=== PATIENT | male | born 1935 | race Caucasian/White ===

== ENCOUNTER 2018-03-31 06:38 | Day surgery (SDC) | payer MEDICARE, BC, MEDICAID ==
[~2018-03-31 06:38] MED LIST: Acetaminophen 325 MG Tab PO PRN; Ondansetron 4 MG/2 ML SDV IVPUSH PRN; Phenylephrine 10% Ophth Soln 5 ML Bot EYELF PRN
[2018-03-31] MEDS ORDERED: Midazolam 1 MG/ML 2 ML SDV IV ONE (06:39)
[2018-03-31] MEDS ORDERED: Sodium Chloride 0.9% 10 ML Syringe IV ONE (06:39)
[2018-03-31] MEDS ORDERED: Dexamethasone 4 MG/ML SDV IV ONE (06:39)
[2018-03-31] MEDS: Proparacaine 0.5% Ophth Soln 15 ML Bottle EYELF ONE (07:07)
[2018-03-31] MEDS: Moxifloxacin 0.5% Ophth Soln 3 ML Bottle EYELF ONE (07:09)
[2018-03-31] MEDS: Povidone-Iodine 5% Sterile Ophth Soln 30 ML Bottle EYELF ONE ×2 (07:09→08:03)
[2018-03-31] MEDS: Sodium Chloride 0.9% 10 ML Syringe FLUSH PRN (07:10)
[2018-03-31] MEDS: Phenylephrine 10% Ophth Soln 5 ML Bot EYELF ONE (07:11)
[2018-03-31] MEDS: Timolol Maleate 0.5% Ophth Soln 5 ML Bottle EYELF ONE (07:12)
[2018-03-31] MEDS: Cataract Ophth Solution EYELF ONE (07:14)
[2018-03-31] MEDS: Tetracaine HCl/PF 0.5% 4 ML Bottle EYELF ONE (08:03)
[2018-03-31] MEDS: Lidocaine 1% 30 ML SDV ONE (08:03)
[2018-03-31] MEDS: Diclofenac Sodium 0.1% Ophth Soln 5 ML Bottle EYELF ONE (08:04)
[2018-03-31] MEDS: Apraclonidine 0.5% Ophth Soln 5 ML Bot EYELF ONE (08:04)
[2018-03-31] MEDS: Dexamethasone/Neomycin/Polymyxin B Ophth Oint 3.5 GM Tube EYELF ONE (08:04)
[2018-03-31] MEDS: Chondroitin Sulfate/Hyaluronate Sodium Ophth Inj 0.75 ML Syringe EYELF ONE (08:05)
[2018-03-31] MEDS: Balanced Salt Solution Ophth Irrig 500 ML Bottle IOCULAR ONE (08:05)
[2018-03-31] MEDS: Vancomycin 500 MG SDV EYELF ONE (08:05)
--- NOTE | 2018-03-31 08:25 | OR ---
DATE: 03/31/2018 PREOPERATIVE DIAGNOSIS: Visually significant mixed cataract, left eye. POSTOPERATIVE DIAGNOSIS: Visually significant mixed cataract, left eye. PROCEDURE: Extracapsular cataract extraction with intraocular lens implant, left eye. ANESTHESIA: Topical/local MAC. COMPLICATIONS: None. INDICATION: Mr. Trevino was seen in the clinic with complaints of a slow progressive decrease in vision. His clinical examination reveals visually significant mixed cataract. I explained options, offered cataract surgery, and explained risks preoperatively including the potential for infection, retinal detachment, and loss of vision amongst others. We discussed implant options. He has requested a monofocal implant. OPERATIVE DESCRIPTION: After informed consent was obtained and the risks, benefits, and alternatives were explained, the patient was brought to the operative suite and topical anesthesia was administered. The patient was then prepped and draped in the sterile fashion, and attention was placed on the left eye. A sterile lid speculum was placed into the left eye to allow operative exposure. A full-thickness paracentesis was made in the temporal portion of the operative eye. Preservative-free lidocaine 0.1 mL was injected into the anterior chamber followed by viscoelastic. A full-thickness corneal incision was then made into the anterior chamber. A bent needle cystotome was used to create a small guerda in the anterior capsule. The capsulorrhexis forceps was then used to create a 360-degree curvilinear capsulorrhexis. The nucleus was then removed using a phacoemulsification handpiece, and the remaining cortical material was then removed with irrigation and aspiration handpiece. Following removal of the cortical material, the capsular bag was then inspected and noted to be free of any holes or tears. Viscoelastic was then injected into the capsular bag, and the intraocular lens was inserted into the capsular bag. The viscoelastic material was then removed from both the anterior and posterior chambers and from behind the IOL. The lens and capsular bag were then reinspected. The IOL was well centered and the capsular bag intact. The wound and paracentesis sites were inspected and hydrated with balanced saline solution. Both were found to be self-sealing. The intraocular pressure was assessed digitally and found to be within normal range. A good red reflex was noted at the completion of the procedure. No complications occurred during the operation. At the completion of the procedure, Maxitrol, Voltaren, and Iopidine drops were placed into the operative eye. A sterile eye shield was placed over the operative eye, and the patient was transported to the postoperative recovery area having tolerated the procedure well. Postoperative instructions were given along with a postoperative appointment. The patient was advised to call with any questions or concerns. [facility] /[id number]
== END 2018-03-31 09:23 ==
LOC: DL.SDS 06:38
PROVIDERS: ATTEND Ophthalmology
DX: E11.36 Type 2 diabetes mellitus with diabetic cataract (principal); H25.812 Combined forms of age-related cataract, left eye; H26.9 Unspecified cataract; I13.0 Hypertensive heart and chronic kidney disease with heart failure and stage 1 through stage 4 chronic kidney disease, or unspecified chronic kidney disease; I50.9 Heart failure, unspecified; E11.22 Type 2 diabetes mellitus with diabetic chronic kidney disease; N18.3 Chronic kidney disease, stage 3 (moderate); E78.5 Hyperlipidemia, unspecified; D64.9 Anemia, unspecified; I25.10 Atherosclerotic heart disease of native coronary artery without angina pectoris; I48.91 Unspecified atrial fibrillation
CPT/HCPCS: 00142; A9270-GY; C1780; J1100; J2001; J2250; J3370

== ENCOUNTER 2018-06-23 10:58 | Day surgery (SDC) | payer MEDICARE, BC, MEDICAID ==
[~2018-06-23 10:58] MED LIST changes: +Cataract Ophth Solution EYERT ONE; +Moxifloxacin 0.5% Ophth Soln 3 ML Bottle EYERT ONE; -Phenylephrine 10% Ophth Soln 5 ML Bot EYELF PRN; +Phenylephrine 10% Ophth Soln 5 ML Bot EYERT ONE; +Phenylephrine 10% Ophth Soln 5 ML Bot EYERT PRN; +Povidone-Iodine 5% Sterile Ophth Soln 30 ML Bottle EYERT ONE; +Proparacaine 0.5% Ophth Soln 15 ML Bottle EYERT ONE; +Sodium Chloride 0.9% 10 ML Syringe FLUSH PRN; +Timolol Maleate 0.5% Ophth Soln 5 ML Bottle EYERT ONE
[2018-06-23] MEDS ORDERED: Midazolam 1 MG/ML 2 ML SDV IV ONE (10:59)
[2018-06-23] MEDS ORDERED: Sodium Chloride 0.9% 10 ML Syringe IV ONE (10:59)
[2018-06-23] MEDS ORDERED: Dexamethasone 4 MG/ML SDV IV ONE (10:59)
[2018-06-23] MEDS ORDERED: Phenylephrine 10% Ophth Soln 5 ML Bot EYERT PRN (11:00)
[2018-06-23] MEDS ORDERED: Proparacaine 0.5% Ophth Soln 15 ML Bottle EYERT ONE (11:00)
[2018-06-23] MEDS ORDERED: Povidone-Iodine 5% Sterile Ophth Soln 30 ML Bottle EYERT ONE ×2 (11:00→11:55)
[2018-06-23] MEDS ORDERED: Sodium Chloride 0.9% 10 ML Syringe FLUSH PRN (11:00)
[2018-06-23] MEDS ORDERED: Cataract Ophth Solution EYERT ONE (11:00)
[2018-06-23] MEDS ORDERED: Ondansetron 4 MG/2 ML SDV IVPUSH PRN (11:00)
[2018-06-23] MEDS ORDERED: Moxifloxacin 0.5% Ophth Soln 3 ML Bottle EYERT ONE (11:00)
[2018-06-23] MEDS ORDERED: Phenylephrine 10% Ophth Soln 5 ML Bot EYERT ONE (11:00)
[2018-06-23] MEDS ORDERED: Timolol Maleate 0.5% Ophth Soln 5 ML Bottle EYERT ONE (11:00)
[2018-06-23] MEDS ORDERED: Acetaminophen 325 MG Tab PO PRN (11:00)
[2018-06-23] MEDS ORDERED: Apraclonidine 0.5% Ophth Soln 5 ML Bot EYERT ONE (11:55)
[2018-06-23] MEDS ORDERED: Tetracaine HCl/PF 0.5% 4 ML Bottle EYERT ONE (11:55)
[2018-06-23] MEDS ORDERED: Diclofenac Sodium 0.1% Ophth Soln 5 ML Bottle EYERT ONE (11:55)
[2018-06-23] MEDS ORDERED: Lidocaine 1% 30 ML SDV ONE (11:55)
[2018-06-23] MEDS ORDERED: Dexamethasone/Neomycin/Polymyxin B Ophth Oint 3.5 GM Tube EYERT ONE (11:55)
[2018-06-23] MEDS ORDERED: Balanced Salt Solution Ophth Irrig 500 ML Bottle IOCULAR ONE (11:56)
[2018-06-23] MEDS ORDERED: Vancomycin 500 MG SDV EYERT ONE (11:56)
[2018-06-23] MEDS ORDERED: Chondroitin Sulfate/Hyaluronate Sodium Ophth Inj 0.75 ML Syringe EYERT ONE (11:56)
--- NOTE | 2018-06-23 15:36 | OR ---
DATE: 06/23/2018 PREOPERATIVE DIAGNOSIS: Visually significant mixed cataract, right eye. POSTOPERATIVE DIAGNOSIS: Visually significant mixed cataract, right eye. PROCEDURE: Extracapsular cataract extraction with intraocular lens implant, right eye. ANESTHESIA: Topical/local MAC. COMPLICATIONS: None. INDICATION: Visually significant symptomatic cataract. The patient was seen in the clinic. Examination revealed visually significant cataract. I explained options, offered cataract surgery, and I explained risks preoperatively including, but not limited to, infection, retinal detachment, loss of vision, and need for additional surgery amongst others. We discussed implant options. He requested a monofocal implant. OPERATIVE DESCRIPTION: After informed consent was obtained and the risks, benefits, and alternatives were explained, the patient was brought to the operative suite and topical anesthesia was administered. The patient was then prepped and draped in the sterile fashion and attention was placed on the right eye. A sterile lid speculum was placed into the right eye to allow operative exposure. A full-thickness paracentesis was made in the temporal portion of the operative eye. Preservative-free lidocaine 0.1 mL was injected into the anterior chamber followed by viscoelastic. A full-thickness corneal incision was then made into the anterior chamber. A bent needle cystotome was used to create a small guerda in the anterior capsule. The capsulorrhexis forceps was then used to create a 360-degree curvilinear capsulorrhexis. The nucleus was then removed using a phacoemulsification handpiece and the remaining cortical material was then removed with irrigation and aspiration handpiece. Following removal of the cortical material, the capsular bag was then inspected and noted to be free of any holes or tears. Viscoelastic was then injected into the capsular bag and the intraocular lens was inserted into the capsular bag. The viscoelastic material was then removed from both the anterior and posterior chambers and from behind the IOL. The lens and capsular bag were then reinspected. The IOL was well centered and the capsular bag intact. The wound and paracentesis sites were inspected and hydrated with balanced saline solution. Both were found to be self-sealing. The intraocular pressure was assessed digitally and found to be within normal range. A good red reflex was noted at the completion of the procedure. No complications occurred during the operation. At the completion of the procedure, Maxitrol, Voltaren, and Iopidine drops were placed into the operative eye. A sterile eye shield was placed over the operative eye and the patient was transported to the postoperative recovery area having tolerated the procedure well. Postoperative instructions were given along with a postoperative appointment. The patient was advised to call with any questions or concerns. [facility] /[id number]
== END 2018-06-23 13:11 ==
LOC: DL.SDS 10:58
PROVIDERS: ATTEND Ophthalmology
DX: E11.36 Type 2 diabetes mellitus with diabetic cataract (principal); I13.0 Hypertensive heart and chronic kidney disease with heart failure and stage 1 through stage 4 chronic kidney disease, or unspecified chronic kidney disease; E08.22 Diabetes mellitus due to underlying condition with diabetic chronic kidney disease; N18.3 Chronic kidney disease, stage 3 (moderate); I50.9 Heart failure, unspecified; I48.91 Unspecified atrial fibrillation; N40.0 Benign prostatic hyperplasia without lower urinary tract symptoms; Z86.73 Personal history of transient ischemic attack (TIA), and cerebral infarction without residual deficits; Z96.1 Presence of intraocular lens; Z79.83 Long term (current) use of bisphosphonates; Z79.02 Long term (current) use of antithrombotics/antiplatelets; Z79.891 Long term (current) use of opiate analgesic; Z79.84 Long term (current) use of oral hypoglycemic drugs
CPT/HCPCS: 00142; 66984; A9270; J1100; J2001; J2250; J3370; V2632